=== PATIENT | male | born 1960 | race Caucasian/White ===

== ENCOUNTER 2021-11-24 12:15 | Emergency (ER) | payer OTHER ==
[2021-11-24 12:46] VITALS: TEMP 99.8
--- NOTE | 2021-11-24 13:08 | ED ---
URI HPI - General Chief Complaint: Upper Respiratory Infection Stated Complaint: BAM, COVID + Time Seen by Provider: 11/24/21 12:49 Source: patient, RN notes reviewed Mode of arrival: ambulatory Limitations: no limitations - History of Present Illness Initial Comments: 61-year-old male presents emergency Department chief complaint of COVID-19. Patient was sent in by Dr. Coleman for monoclonal antibodies. Patient states he is a daily smoker, history of hyperlipidemia, coronary disease. Patient states that he's had symptoms for last few days. Patient had positive outpatient tests. Patient had mild congestion, cough. No reported fever. Patient denies any other associated complaints. - Related Data Allergies Allergy/AdvReac Type Severity Reaction Status Date / Time No Known Allergies Allergy Verified 11/24/21 13:40 Review of Systems ROS Statement: Those systems with pertinent positive or pertinent negative responses have been documented in the HPI. ROS Other: All systems not noted in ROS Statement are negative. Past Medical History Past Medical History: COPD, Hyperlipidemia History of Any Multi-Drug Resistant Organisms: None Reported Past Surgical History: No Surgical Hx Reported Past Psychological History: Schizophrenia Smoking Status: Current every day smoker Past Alcohol Use History: Occasional Past Drug Use History: None Reported General Exam Limitations: no limitations General appearance: alert, in no apparent distress Head exam: Present: atraumatic, normocephalic, normal inspection Eye exam: Present: normal appearance, PERRL, EOMI. Absent: scleral icterus, conjunctival injection, periorbital swelling ENT exam: Present: normal exam, mucous membranes moist Neck exam: Present: normal inspection, full ROM. Absent: tenderness, meningismus, lymphadenopathy Respiratory exam: Present: normal lung sounds bilaterally. Absent: respiratory distress, wheezes, rales, rhonchi, stridor Cardiovascular Exam: Present: regular rate, normal rhythm, normal heart sounds. Absent: systolic murmur, diastolic murmur, rubs, gallop, clicks Course Vital Signs 11/24/21 12:38 Temperature 99.8 F H Pulse Rate 101 H Respiratory 22 Rate Blood Pressure 123/81 O2 Sat by Pulse 93 L Oximetry Medical Decision Making - Medical Decision Making Patient did receive monoclonal be discharged in stable condition return parameters were discussed. - Lab Data Lab Results 11/24/21 Range/Units 12:47 Coronavirus (PCR) Detected A (Not Detectd) Disposition Clinical Impression: COVID-19 Disposition: HOME SELF-CARE Condition: Stable Instructions (If sedation given, give patient instructions): Coronavirus Disease 2019 (COVID-19) Additional Instructions: Please return to the Emergency Department if symptoms worsen or any other concerns. Is patient prescribed a controlled substance at d/c from ED?: No Referrals: Rosalie Coleman MD [Primary Care Provider] - 1-2 days Time of Disposition: 13:41
[2021-11-24] MEDS ORDERED: IBUPROFEN 600 MG TAB PO STA (13:24)
[2021-11-24] MEDS ORDERED: SODIUM CHLORIDE 0.9% 50 ML IVPB ONE (13:45)
[2021-11-24] MEDS ORDERED: CASIRIVIMAB (REGN10933) (EUA) 600 MG, IMDEVIMAB (REGN10987) (EUA) 600 MG in SODIUM CHLO... IVPB ONE (14:15)
[2021-11-24 16:00] VITALS: BP 134/80; PULSE 94; RESP 18
== END 2021-11-24 16:00 | disposition home or self-care (01) ==
LOC: EC 12:15
DX: U07.1 COVID-19 (principal); J44.9 Chronic obstructive pulmonary disease, unspecified; I25.10 Atherosclerotic heart disease of native coronary artery without angina pectoris; E78.5 Hyperlipidemia, unspecified; F17.200 Nicotine dependence, unspecified, uncomplicated
CPT/HCPCS: 87635; 99283; Q0244

== ENCOUNTER 2023-07-02 13:19 | Emergency (ER) | payer OTHER ==
[2023-07-02 13:24] VITALS: TEMP 97.9
--- NOTE | 2023-07-02 14:28 | ED ---
General Adult HPI - General Chief complaint: Psychiatric Symptoms Stated complaint: mental health Time Seen by Provider: 07/02/23 13:44 Source: patient, RN notes reviewed, old records reviewed Mode of arrival: wheelchair Limitations: no limitations - History of Present Illness Initial comments: [facility] for psychiatric evaluation. Patient has been feeling more depressed in the last 2 days because he has to move in his building and states he is having suicidal ideations. Denies any current attempts or plans but does have a history of an attempt by overdose. he states this was a longtime ago. Currently has not attempted. Denies any physical complaints at this time. Ambulates at baseline with a walker. Denies abdominal pain, chest pain, shortness of breath. His no other acute complaints at this time. Presents with [facility] for psychiatric evaluation. - Related Data Home Medications Medication Instructions Recorded Confirmed HYDROcodone/APAP 10-325MG [[place] 1 tab PO Q8H PRN 11/24/21 07/02/23 10-325] Sennosides/Docusate Sodium [Senna 1 tab PO BID 11/24/21 07/02/23 Plus 8.6-50 mg Tablet] Simvastatin [Zocor] 20 mg PO DAILY 11/24/21 07/02/23 cloZAPine [Clozaril] 50 mg PO DAILY 11/24/21 07/02/23 cloZAPine [Clozaril] 100 mg PO HS 11/24/21 07/02/23 Allergies Allergy/AdvReac Type Severity Reaction Status Date / Time benztropine [From Cogentin] AdvReac Unknown Verified 07/02/23 16:14 Iodinated Contrast Media AdvReac Rash/Hives Verified 07/02/23 16:14 @injection site Review of Systems ROS Statement: Those systems with pertinent positive or pertinent negative responses have been documented in the HPI. Review of Systems: CONST: Denies fever EYES: Denies blurry vision ENT: Denies nasal congestion C/V: Denies Chest pain RESP: Denies shortness of breath GI: Denies abdominal pain : Denies dysuria SKIN: Denies rash. MSK: Denies joint pain. NEURO: Denies headache PSYCH: Denies suicidal and homicidal ideations/plans/attempts. Denies visual or auditory hallucinations. ROS Other: All systems not noted in ROS Statement are negative. Past Medical History Past Medical History: COPD, Hyperlipidemia History of Any Multi-Drug Resistant Organisms: None Reported Past Surgical History: No Surgical Hx Reported Past Psychological History: Schizophrenia Smoking Status: Current every day smoker Past Alcohol Use History: Occasional Past Drug Use History: None Reported General Exam - General Exam Comments Initial Comments: General: Appears in no acute distress. HEAD: Normal with no signs of head trauma. EYES: PERRLA, EOMI, conjunctiva normal, no discharge. ENT: Hearing grossly intact, normal oropharynx. RESPIRATORY: Clear breath sounds bilaterally. No wheezes, rales, or rhonchi. C/V: Regular rate and rhythm. S1 and S2 auscultated, no edema, peripheral pulses 2+ and intact throughout ABD: Abd is soft, nontender, nondistended EXT: Normal range of motion, no obvious deformity SKIN: No rashes or lesions observed on exposed skin. NEURO: Alert and oriented x 4. No focal sensory or strength deficits. Limitations: no limitations Course Vital Signs 07/02/23 07/02/23 13:20 17:32 Temperature 97.9 F Pulse Rate 100 95 Respiratory 16 18 Rate Blood Pressure 115/81 122/75 O2 Sat by Pulse 98 96 Oximetry Medical Decision Making - Medical Decision Making Was pt. sent in by a medical professional or institution (, PA, [employer], urgent care, hospital, or shelter...) When possible be specific @ -No Did you speak to anyone other than the patient for history (EMS, parent, family, police, friend...)? What history was obtained from this source @ -Patient's windows server specialist from [facility] presents with the patient and chest pain status post medical history. Did you review nursing and triage notes (agree or disagree)? Why? @ -I reviewed and agree with nursing and triage notes Were old charts reviewed (outside hosp., previous admission, EMS record, old EKG, old radiological studies, urgent care reports/EKG's, shelter records)? Report findings @ -No old charts were reviewed Differential Diagnosis (chest pain, altered mental status, abdominal pain women, abdominal pain men, vaginal bleeding, weakness, fever, dyspnea, syncope, headache, dizziness, GI bleed, back pain, seizure, CVA, palpatations, mental health, musculoskeletal)? @ -Differential Mental Health Depression, anxiety, bipolar, psychosis, schizophrenia, borderline personality, situational depression, adjustment disorder, behavioral disorder, brain tumor, malingering, substance abuse, encephalopathy, medication reaction, dementia, hypothyroidism, degenerative neurologic disorder, lupus.... This is not meant to be all-inclusive list EKG interpreted by me (3pts min.). @ -None done X-rays interpreted by me (1pt min.). @ -None done CT interpreted by me (1pt min.). @ -None done U/S interpreted by me (1pt. min.). @ -None done What testing was considered but not performed or refused? (CT, X-rays, U/S, labs)? Why? @ -None What meds were considered but not given or refused? Why? @ -None Did you discuss the management of the patient with other professionals (professionals i.e. , PA, [employer], lab, RT, psych nurse, school social worker, dry cleaner hand, teacher, chief contract officer, lead case manager)? Give summary @ -Discussed with the EPS who was in agreement with the consult and evaluation. After evaluation, determined the patient is cleared for discharge home. Was smoking cessation discussed for >3mins.? @ -No Was critical care preformed (if so, how long)? @ -No Were there social determinants of health that impacted care today? How? (Homelessness, low income, unemployed, alcoholism, drug addiction, transportat ion, low edu. Level, literacy, decrease access to med. care, group home, rehab)? @ -No Was there de-escalation of care discussed even if they declined (Discuss DNR or withdrawal of care, Hospice)? DNR status @ -No What co-morbidities impacted this encounter? (DM, HTN, Smoking, COPD, CAD, Cancer, CVA, ARF, Chemo, Hep., AIDS, mental health diagnosis, sleep apnea, morbid obesity)? @ -None Was patient admitted / discharged? Hospital course, mention meds given and route, prescriptions, significant lab abnormalities, going to OR and other pertinent info. @ -Based on the patient's presentation and physical exam, and concern for psychiatric illness for the patient this time. He was placed in green scrubs. He is endorsing suicidal ideations and worsening depression. Is a history of schizophrenia. Vital signs within acceptable limits. BAT is 0. He presents with his windows server specialist for further management and evaluation of this time. UDS is pending. At this time patient is medically cleared for evaluation by psychiatry. Disposition is pending psychiatric evaluation. EPS was notified. EPS evaluated patient and after discussion with on-call psychiatry, determined the patient is stable for discharge home as he does not meet inpatient criteria for admission to the psychiatric unit. I was in agreement this plan. Patient has good follow-up and will be given a safety plan. Patient discharged in good condition. Undiagnosed new problem with uncertain prognosis? @ -No Drug Therapy requiring intensive monitoring for toxicity (Heparin, Nitro, Insulin, Cardizem)? @ -No Were any procedures done? @ -No Diagnosis/symptom? @ -Depression, suicidal ideations Acute, or Chronic, or Acute on Chronic? @ -Acute Uncomplicated (without systemic symptoms) or Complicated (systemic symptoms)? @ -Uncomplicated Side effects of treatment? @ -No Exacerbation, Progression, or Severe Exacerbation? @ -No Poses a threat to life or bodily function? How? (Chest pain, [place], [place], pneumonia, PE, COPD, DKA, ARF, appy, cholecystitis, CVA, Diverticulitis, Homicidal, Suicidal, threat to staff... and all critical care pts) @ -Yes, potentially from SI - Lab Data Lab Results 07/02/23 Range/Units 14:08 Urine Opiates Screen Detected H (NotDetected) Ur Oxycodone Screen Not Detected (NotDetected) Urine Methadone Screen Not Detected (NotDetected) Ur Propoxyphene Screen Not Detected (NotDetected) Ur Barbiturates Screen Not Detected (NotDetected) U Tricyclic Antidepress Detected H (NotDetected) Ur Phencyclidine Scrn Not Detected (NotDetected) Ur Amphetamines Screen Not Detected (NotDetected) U Methamphetamines Scrn Not Detected (NotDetected) U Benzodiazepines Scrn Not Detected (NotDetected) Urine Cocaine Screen Not Detected (NotDetected) U Marijuana (THC) Screen Not Detected (NotDetected) Disposition Clinical Impression: Encounter for psychiatric assessment, Suicidal ideation, Depression Disposition: HOME SELF-CARE Condition: Good Additional Instructions: follow safety plan Is patient prescribed a controlled substance at d/c from ED?: No Referrals: Rosalie Coleman MD [STAFF PHYSICIAN] - 1-2 days Time of Disposition: 16:42
[2023-07-02 15:41] LABS: Amphetamine Screen,Urine Not Detected (NotDetected); Barbiturate Screen,Urine Not Detected (NotDetected); Benzodiazepines Screen,Urine Not Detected (NotDetected); Cocaine Screen,Urine Not Detected (NotDetected); Methadone Screen, Urine Not Detected (NotDetected); Opiate Screen,Urine Detected (NotDetected); Oxycodone Screen, Urine Not Detected (NotDetected); Phencyclidine Screen,Urine Not Detected (NotDetected); Tricyclic Antidepressant,Urine Detected (NotDetected); Urn Cannabinoid Scrn Not Detected (NotDetected)
[2023-07-02 17:33] VITALS: BP 122/75; PULSE 95; RESP 18
== END 2023-07-02 19:00 | disposition home or self-care (01) ==
LOC: EC 13:19
DX: Z00.8 Encounter for other general examination (principal); R45.851 Suicidal ideations; F32.A Depression, unspecified; J44.9 Chronic obstructive pulmonary disease, unspecified; E78.5 Hyperlipidemia, unspecified; F17.200 Nicotine dependence, unspecified, uncomplicated; Z91.041 Radiographic dye allergy status; Z88.8 Allergy status to other drugs, medicaments and biological substances; Z79.899 Other long term (current) drug therapy
CPT/HCPCS: 80306; 82075; 99285

== ENCOUNTER → 2024-06-11 | Outpatient (CLI) | payer OTHER ==
--- NOTE | 2024-06-11 09:26 | US ---
EXAMINATION TYPE: US abdomen complete DATE OF EXAM: 06/11/2024 COMPARISON: CT 2013 CLINICAL INDICATION: Male, 63 years old with history of R10.84 GEN ABD PAIN; TECHNIQUE: Multiple sonographic images of the abdomen are obtained. FINDINGS: EXAM MEASUREMENTS: Liver Length: 16.7 cm Gallbladder Wall: 0.3 cm CBD: 0.3 cm Spleen: 8.5 x 8.2 x 3.6 cm Right Kidney: 10.8 x 5.2 x 5.0 cm Left Kidney: 10.5 x 4.8 x 4.9 cm NCA CERTIFIED CONCIERGE NOTES: Pancreas: wnl Liver: Slight increase in echogenicity Gallbladder: Multiple echogenic foci with shadowing Evidence for sonographic Weinstein's sign: NO CBD: wnl Spleen: wnl Right Kidney: wnl Left Kidney: wnl Upper IVC: wnl Abd Aorta: Mid aortic dilation 3.1cm The liver is homogenous without focal lesion. The intrahepatic portion of the IVC is within normal l imits. The proximal abdominal aorta measures up to 1.8 cm. The midportion measures up to 3.1 cm. The distal portion measures up to 1.7 cm. Multiple gallstones are identified. No wall thickening or surr ounding fluid identified. Negative sonographic Weinstein's sign. Common bile duct is unremarkable. The visualized portions of the pancreas are homogenous. The spleen is unremarkable. Kidneys are symmetr ic and free of hydronephrosis. No renal lesions are seen. IMPRESSION: 1. No ultrasound is for acute process. 2. Cholelithiasis. 3. Abdominal aortic aneurysm involving the midportion measuring up to 3.1 cm.
== END | disposition home or self-care (01) ==
LOC: RADUSWWP 08:05
PROVIDERS: ATTEND Internal Medicine
DX: K80.20 Calculus of gallbladder without cholecystitis without obstruction (principal); I71.40 Abdominal aortic aneurysm, without rupture, unspecified
CPT/HCPCS: 76700